=== PATIENT | female | born 1955 | race Caucasian/White ===

== ENCOUNTER → 2018-03-05 | Outpatient (CLI) | payer OTHER, BC ==
--- NOTE | 2018-03-05 20:26 | PCVCIMAG ---
APPROVED REPORT Study performed: 03/05/2018 10:38:19 Exam: Stress Echocardiogram Indication: abn ekg, HTN, palps, tobacco use Patient Location: Echo lab Stress Nurse: Alva Flaherty RN Status: routine Ht: 5 ft 6 in HR: 72 bpm BP: 130/88 mmHg Rhythm: NSR Procedure The patient underwent an Exercise Stress Test using the Rafael Protocol. Blood pressure, heart rate, and EKG were monitored. An Echocardiogram was performed by rim technician in four stages in quad fashion. At peak stress, four selected images were obtained and placed side by side with resting images for comparison. Stress Test Details Stress Test: Exercise stress testing was performed using a Rafael protocol. HR Resting HR: 72 bpmMax Heart Rate (APMHR): 158 bpm Max HR Achieved: 179 bpmTarget HR (85% APMHR): 134 bpm % of APMHR: 113 Recovery HR: 93 bpm HR response to stress: Normal HR response to stress BP Resting BP: 130/88 mmHg Max BP: 176/88 mmHg Recovery BP: 122/60 mmHg BP response to stress: Normal blood pressure response to stress. ECG Resting ECG: Sinus Rhythm, nonspecific ST-T abnormalities Stress ECG: Sinus Rhythm, nonspecific ST-T abnormalities ST Change: Normal Arrhythmia: PACs and isolated PVC at peak exercise Recovery ECG: Sinus Rhythm, nonspecific ST-T abnormalities Recovery ST Change: Normal Recovery Arrhythmia: None Clinical Reason for Termination: Maximal effort Stress Symptoms: Dyspnea Exercise duration: 10 min sec Highest Stage Achieved: Stage 4: 4.2 mph at 16% grade. Exercise capacity: 13.3 METs Overall Exercise Capacity for Age: Good Scale: Active Angina Score: None Symptoms resolved with caffeine. Symptoms resolved during recovery. Symptoms resolved during recovery with aminophylline. No complications. Stress ECG Conclusion 1. Subjectively Negative for ischemia 2. Electrocardiographically negative for ischemia 3. Satisfactory Functional Capacity Pre-Stress Echo The resting Echocardiogram showed normal left ventricular contractility with an estimated Ejection Fraction of about >55%. Normal wall motion in all segments on baseline images. Post-Stress Echo The stress Echocardiogram showed normal left ventricular contractility with an estimated Ejection Fraction of about 65%. Normal augmentation of wall motion in all segments on post stress images. Clinical No clinical or ECG evidence for ischemia. Conclusion Clinical Response: Non-ischemic Exercise Capacity: Superior Stress ECG Response: Non-ischemic Stress Echo Images: Non-ischemic The left ventricle is normal in size and wall thickness in both the rest and stress images. 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 1. Low Risk Study Other Information Study Quality: Adequate <Conclusion> The left ventricle is normal in size and wall thickness in both the rest and stress images. 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 1. Low Risk Study
== END | disposition home or self-care (01) ==
LOC: PCVCIMAG 11:03
PROVIDERS: ATTEND Internal Medicine
DX: I10 Essential (primary) hypertension (principal); R94.31 Abnormal electrocardiogram [ECG] [EKG]; R00.2 Palpitations; Z72.0 Tobacco use
CPT/HCPCS: 93325; 93351